=== PATIENT | male | born 1955 | race Caucasian/White ===

== ENCOUNTER 2021-10-01 16:28 | Emergency (ER) | payer OTHER ==
[2021-10-01 20:59] LABS: HEMOGLOBIN 9.9 gm/dl (14.0-17.5); RED BLOOD COUNT 3.52 M/UL (4.20-5.50); WHITE BLOOD COUNT 9.8 K/UL (4.5-11.0)
[2021-10-01 21:21] LABS: BUN/CREATININE RATIO 10 (0-10)
== END 2021-10-01 22:50 | disposition home or self-care (01) ==
LOC: ER1 16:28
PROVIDERS: Student in an Organized Health Care Education/Training Program
DX: R31.9 Hematuria, unspecified (principal); R91.1 Solitary pulmonary nodule; I10 Essential (primary) hypertension; Z79.01 Long term (current) use of anticoagulants
CPT/HCPCS: 80053; 81001; 85025; 99283

== ENCOUNTER → 2021-11-09 | Outpatient (CLI) | payer OTHER | LOC: KOH-I 14:00 → CT 14:13 | DX: F17.210 Nicotine dependence, cigarettes, uncomplicated (principal); R91.8 Other nonspecific abnormal finding of lung field; J98.19 Other pulmonary collapse | CPT/HCPCS: 71271 ==

== ENCOUNTER 2021-12-01 11:44 | Emergency (ER) | payer OTHER ==
[2021-12-01 12:34] LABS: HEMOGLOBIN 9.3 gm/dl (14.0-17.5); RED BLOOD COUNT 3.47 M/UL (4.20-5.50); WHITE BLOOD COUNT 15.8 K/UL (4.5-11.0)
[2021-12-01 13:05] LABS: BUN/CREATININE RATIO 15 (0-10)
[2021-12-01] MEDS ORDERED: CEFDINIR300 MG PO (16:13)
== END 2021-12-01 17:40 | disposition home or self-care (01) ==
LOC: ER1 11:44
PROVIDERS: Physician Assistant
DX: R31.9 Hematuria, unspecified (principal); M48.54XA Collapsed vertebra, not elsewhere classified, thoracic region, initial encounter for fracture; J18.9 Pneumonia, unspecified organism; D64.9 Anemia, unspecified; F17.200 Nicotine dependence, unspecified, uncomplicated; N28.89 Other specified disorders of kidney and ureter; Z79.01 Long term (current) use of anticoagulants
CPT/HCPCS: 80053; 81001; 85025; 85610; 85730; 87086; 96374; 96375; 96376; 99284; J2270; J2405

== ENCOUNTER 2022-01-04 14:11 | Emergency (ER) | payer OTHER ==
[~2022-01-04 14:11] MED LIST: CEFDINIR300 MG PO
[2022-01-04 16:11] LABS: HEMOGLOBIN 9.6 gm/dl (14.0-17.5); RED BLOOD COUNT 3.65 M/UL (4.20-5.50); WHITE BLOOD COUNT 17.7 K/UL (4.5-11.0)
[2022-01-04 16:38] LABS: BUN/CREATININE RATIO 19 (0-10)
== END 2022-01-04 22:41 | disposition left against medical advice (07) ==
LOC: ER1 14:11
PROVIDERS: Family Medicine
DX: N28.89 Other specified disorders of kidney and ureter (principal); D72.829 Elevated white blood cell count, unspecified; D64.9 Anemia, unspecified; F17.200 Nicotine dependence, unspecified, uncomplicated; M54.50 Low back pain, unspecified; Z89.612 Acquired absence of left leg above knee; Z89.611 Acquired absence of right leg above knee; Z86.79 Personal history of other diseases of the circulatory system
CPT/HCPCS: 80053; 81001; 82550; 82553; 83605; 83690; 83735; 84484; 85025; 96374; 99283; J1170; Q9967